=== PATIENT | female | born 2000 | race American Indian/Alaskan Native ===

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

== ENCOUNTER 2022-08-08 16:16 | Emergency (ER) | payer MEDICAID ==
[2022-08-08] MEDS ORDERED: SODIUM CHLORIDE 0.9% 1000 ML IV SOLN IV ONE (17:14)
[2022-08-08] MEDS ORDERED: ACETAMINOPHEN 500 MG TAB PO ONE (17:15)
[2022-08-08] MEDS ORDERED: ONDANSETRON 4 MG/2 ML INJ IV ONE (17:28)
[2022-08-08] MEDS ORDERED: KETOROLAC 30 MG/1 ML INJ IV ONE (17:28)
[2022-08-08] MEDS ORDERED: FAMOTIDINE 20 MG/2 ML INJ IV ONE (17:33)
--- NOTE | 2022-08-08 17:33 | Emergency Department Report ---
ED Fever HPI - General Chief Complaint: Fever Stated Complaint: HEADACHE, NAUSEA ABD PAIN Time Seen by Provider: 08/08/22 17:13 Source: patient Exam Limitations: no limitations - History of Present Illness Initial Comments: 21-year-old female no past medical surgical history presents to the hospital complaining of fever, nausea, vomiting, and abdominal pain radiating to the back x3 days. Patient has not had any food in 3 days but attempting to drink fluids but continues to have persistent vomiting, she complains of intermittent cramping along abdominal pain radiating to the back. Pain is 10/10 at times and worse with palpation. Patient did endorse constipation but took a laxative and is currently having diarrhea. She denies dysuria, vaginal discharge, cough, chest pain, or shortness of breath. She is unvaccinated for COVID and has not self tested since illness started. Patient has been treating herself with [id number] medications without improvement ED Review of Systems ROS: Stated complaint: HEADACHE, NAUSEA ABD PAIN Other details as noted in HPI Comment: All other systems reviewed and negative ED Past Medical Hx - Social History Smoking Status: Never Smoker Substance Use Type: None - Medications Home Medications: Home Medications Medication Instructions Recorded Confirmed Last Taken Type Azithromycin [Zithromax Z-LASHONDA] 250 mg PO DAILY #6 tablet 02/22/18 Unknown Rx Benzonatate [Tessalon Perle] 100 mg PO Q8H PRN #10 capsule 02/22/18 Unknown Rx Ibuprofen [Motrin] 600 mg PO Q8H PRN #30 tablet 02/22/18 Unknown Rx Acetaminophen [Acetaminophen 8 650 mg PO TID PRN #20 tab 08/08/22 Unknown Rx Hour] Ibuprofen [Motrin] 800 mg PO Q8HR PRN #20 tablet 08/08/22 Unknown Rx Promethazine [Phenergan] 25 mg PO Q8HR PRN #20 tab 08/08/22 Unknown Rx levoFLOXacin [Levaquin] 750 mg PO QDAY #7 tablet 08/08/22 Unknown Rx metroNIDAZOLE [Flagyl] 500 mg PO Q8HR #21 tablet 08/08/22 Unknown Rx ED Physical Exam - General Limitations: No Limitations - Other Other exam information: General: No acute distress Head: Atraumatic Eyes: normal appearance Neck: Normal appearance, no midline tenderness Chest: Clear to auscultation bilaterally CV: Tachycardia regular rhythm Abdomen: Soft, normal bowel sounds, suprapubic and lower abdominal tenderness, nondistended, no rebound or guarding Back: Normal inspection Extremity: Normal inspection, full range of motion Neuro: Alert O x 3, no facial asymmetry, speech clear, no gross motor sensory deficit Psych: Appropriate behavior Skin: No rash ED Course Vital Signs 08/08/22 08/08/22 08/08/22 16:32 18:46 19:00 Temperature 103.1 F H Pulse Rate 145 H 105 H 103 H Respiratory 18 16 20 Rate Blood Pressure 142/78 127/64 Blood Pressure 129/74 [Left] O2 Sat by Pulse 100 100 98 Oximetry 08/08/22 08/08/22 08/08/22 19:24 19:31 19:45 Temperature Pulse Rate 107 H 102 H 100 H Respiratory 16 20 Rate Blood Pressure 128/74 142/78 Blood Pressure [Left] O2 Sat by Pulse 99 99 99 Oximetry 08/08/22 08/08/22 08/08/22 19:50 20:00 20:15 Temperature 100.1 F H Pulse Rate 107 H 95 H 87 Respiratory 14 17 17 Rate Blood Pressure 128/77 137/76 Blood Pressure 128/77 [Left] O2 Sat by Pulse 97 100 99 Oximetry 08/08/22 08/08/22 08/08/22 20:31 20:45 21:00 Temperature Pulse Rate 79 76 82 Respiratory 27 H 22 19 Rate Blood Pressure 128/85 144/95 130/54 Blood Pressure [Left] O2 Sat by Pulse 100 100 100 Oximetry 08/08/22 08/08/22 08/08/22 21:16 23:03 23:15 Temperature Pulse Rate 87 84 Respiratory 13 16 Rate Blood Pressure 144/95 130/54 126/74 Blood Pressure [Left] O2 Sat by Pulse 100 99 99 Oximetry 08/08/22 08/08/22 08/09/22 23:31 23:45 00:01 Temperature Pulse Rate 89 91 H 89 Respiratory 16 26 H 22 Rate Blood Pressure 144/72 123/66 126/65 Blood Pressure [Left] O2 Sat by Pulse 99 99 99 Oximetry 08/09/22 08/09/22 08/09/22 00:15 00:31 00:45 Temperature Pulse Rate 91 H 86 92 H Respiratory 24 16 14 Rate Blood Pressure 120/57 133/81 131/84 Blood Pressure [Left] O2 Sat by Pulse 99 96 99 Oximetry 08/09/22 08/09/22 01:01 01:15 Temperature Pulse Rate 91 H 87 Respiratory 13 12 Rate Blood Pressure 139/81 122/91 Blood Pressure [Left] O2 Sat by Pulse 100 99 Oximetry - Consultations Consultation #1: 08/08/22 23:36 Case was discussed with Dr. Monsalve. Recommends admission, n.p.o., and IV antibiotics. Patient was informed that admission was recommended for reevaluation to rule out appendicitis. Case to be discussed with Dr. Monsalve who recommends Flagyl and Levaquin if patient decides to leave AGAINST MEDICAL ADVICE. ED Medical Decision Making - Lab Data Result diagrams: 08/08/22 17:27 08/08/22 17:27 Lab Results 08/08/22 08/08/22 08/08/22 Range/Units 17:27 17:27 17:27 WBC 17.4 H (4.5-11.0) K/mm3 RBC 4.74 (3.65-5.03) M/mm3 Hgb 12.2 (10.1-14.3) gm/dl Hct 38.6 (30.3-42.9) % MCV 81 (79-97) fl MCH 26 L (28-32) pg MCHC 32 (30-34) % RDW 15.0 (13.2-15.2) % Plt Count 333 (140-440) K/mm3 Lymph % (Auto) 4.2 L (13.4-35.0) % [place] % (Auto) 6.5 (0.0-7.3) % Eos % (Auto) 0.1 (0.0-4.3) % Baso % (Auto) 0.2 (0.0-1.8) % Lymph # (Auto) 0.7 L (1.2-5.4) K/mm3 [place] # (Auto) 1.1 H (0.0-0.8) K/mm3 Eos # (Auto) 0.0 (0.0-0.4) K/mm3 Baso # (Auto) 0.0 (0.0-0.1) K/mm3 Seg Neutrophils % 89.0 H (40.0-70.0) % Seg Neutrophils # 15.5 H (1.8-7.7) K/mm3 Sodium 133 L (137-145) mmol/L Potassium 3.5 L (3.6-5.0) mmol/L Chloride 94.6 L (98-107) mmol/L Carbon Dioxide 22 (22-30) mmol/L Anion Gap 20 mmol/L BUN 6 L (7-17) mg/dL Creatinine 0.9 (0.6-1.2) mg/dL Estimated GFR > 60 ml/min BUN/Creatinine Ratio 7 % Glucose 110 H (65-100) mg/dL Lactic Acid 2.40 H* (0.7-2.0) mmol/L Calcium 9.0 (8.4-10.2) mg/dL Magnesium (1.7-2.3) mg/dL Total Bilirubin 0.30 (0.1-1.2) mg/dL AST 17 (5-40) units/L ALT 14 (7-56) units/L Alkaline Phosphatase 97 (35-129) units/L Total Protein 7.9 (6.3-8.2) g/dL Albumin 4.5 (3.9-5) g/dL Albumin/Globulin Ratio 1.3 % Lipase (13-60) units/L TSH (0.270-4.200) mlU/mL Free T4 (0.76-1.46) ng/dL HCG, Qual (Negative) Urine Color (Yellow) Urine Turbidity (Clear) Specific Suring (Man) (1.003-1.030) Ur Protein (Man) (Negative) mg/dL Ur Ketones (Man) (Negative) Ur Nitrite (Man) (Negative) Ur Reducing Substances Urine Bilirubin (Man) (Negative) Urine Ictotest Leukocyte Esterase (Man) (Negative) Urine WBC (Auto) (0.0-6.0) /HPF Urine RBC (Auto) (0.0-6.0) /HPF U Epithel Cells (Auto) (0-13.0) /HPF Urine RBC (Manual) (Negative) 08/08/22 08/08/22 08/08/22 Range/Units 17:27 17:27 17:27 WBC (4.5-11.0) K/mm3 RBC (3.65-5.03) M/mm3 Hgb (10.1-14.3) gm/dl Hct (30.3-42.9) % MCV (79-97) fl MCH (28-32) pg MCHC (30-34) % RDW (13.2-15.2) % Plt Count (140-440) K/mm3 Lymph % (Auto) (13.4-35.0) % [place] % (Auto) (0.0-7.3) % Eos % (Auto) (0.0-4.3) % Baso % (Auto) (0.0-1.8) % Lymph # (Auto) (1.2-5.4) K/mm3 [place] # (Auto) (0.0-0.8) K/mm3 Eos # (Auto) (0.0-0.4) K/mm3 Baso # (Auto) (0.0-0.1) K/mm3 Seg Neutrophils % (40.0-70.0) % Seg Neutrophils # (1.8-7.7) K/mm3 Sodium (137-145) mmol/L Potassium (3.6-5.0) mmol/L Chloride (98-107) mmol/L Carbon Dioxide (22-30) mmol/L Anion Gap mmol/L BUN (7-17) mg/dL Creatinine (0.6-1.2) mg/dL Estimated GFR ml/min BUN/Creatinine Ratio % Glucose (65-100) mg/dL Lactic Acid (0.7-2.0) mmol/L Calcium (8.4-10.2) mg/dL Magnesium (1.7-2.3) mg/dL Total Bilirubin (0.1-1.2) mg/dL AST (5-40) units/L ALT (7-56) units/L Alkaline Phosphatase (35-129) units/L Total Protein (6.3-8.2) g/dL Albumin (3.9-5) g/dL Albumin/Globulin Ratio % Lipase 11 L (13-60) units/L TSH 0.510 (0.270-4.200) mlU/mL Free T4 1.32 (0.76-1.46) ng/dL HCG, Qual Negative (Negative) Urine Color (Yellow) Urine Turbidity (Clear) Specific Suring (Man) (1.003-1.030) Ur Protein (Man) (Negative) mg/dL Ur Ketones (Man) (Negative) Ur Nitrite (Man) (Negative) Ur Reducing Substances Urine Bilirubin (Man) (Negative) Urine Ictotest Leukocyte Esterase (Man) (Negative) Urine WBC (Auto) (0.0-6.0) /HPF Urine RBC (Auto) (0.0-6.0) /HPF U Epithel Cells (Auto) (0-13.0) /HPF Urine RBC (Manual) (Negative) 08/08/22 08/08/22 08/08/22 Range/Units 19:08 19:54 19:54 WBC (4.5-11.0) K/mm3 RBC (3.65-5.03) M/mm3 Hgb (10.1-14.3) gm/dl Hct (30.3-42.9) % MCV (79-97) fl MCH (28-32) pg MCHC (30-34) % RDW (13.2-15.2) % Plt Count (140-440) K/mm3 Lymph % (Auto) (13.4-35.0) % [place] % (Auto) (0.0-7.3) % Eos % (Auto) (0.0-4.3) % Baso % (Auto) (0.0-1.8) % Lymph # (Auto) (1.2-5.4) K/mm3 [place] # (Auto) (0.0-0.8) K/mm3 Eos # (Auto) (0.0-0.4) K/mm3 Baso # (Auto) (0.0-0.1) K/mm3 Seg Neutrophils % (40.0-70.0) % Seg Neutrophils # (1.8-7.7) K/mm3 Sodium (137-145) mmol/L Potassium (3.6-5.0) mmol/L Chloride (98-107) mmol/L Carbon Dioxide (22-30) mmol/L Anion Gap mmol/L BUN (7-17) mg/dL Creatinine (0.6-1.2) mg/dL Estimated GFR ml/min BUN/Creatinine Ratio % Glucose (65-100) mg/dL Lactic Acid 1.70 (0.7-2.0) mmol/L Calcium (8.4-10.2) mg/dL Magnesium 1.40 L (1.7-2.3) mg/dL Total Bilirubin (0.1-1.2) mg/dL AST (5-40) units/L ALT (7-56) units/L Alkaline Phosphatase (35-129) units/L Total Protein (6.3-8.2) g/dL Albumin (3.9-5) g/dL Albumin/Globulin Ratio % Lipase (13-60) units/L TSH (0.270-4.200) mlU/mL Free T4 (0.76-1.46) ng/dL HCG, Qual (Negative) Urine Color Yellow (Yellow) Urine Turbidity Clear (Clear) Specific [place] (Man) 1.005 (1.003-1.030) Ur Protein (Man) 1+ (Negative) mg/dL Ur Ketones (Man) 1+ (Negative) Ur Nitrite (Man) Negative (Negative) Ur Reducing Substances Not Reportable Urine Bilirubin (Man) Negative (Negative) Urine Ictotest Not Reportable Leukocyte Esterase (Man) Negative (Negative) Urine WBC (Auto) 5.0 (0.0-6.0) /HPF Urine RBC (Auto) 3.0 (0.0-6.0) /HPF U Epithel Cells (Auto) 4.0 (0-13.0) /HPF Urine RBC (Manual) Negative (Negative) 08/08/22 Range/Units 20:19 WBC (4.5-11.0) K/mm3 RBC (3.65-5.03) M/mm3 Hgb (10.1-14.3) gm/dl Hct (30.3-42.9) % MCV (79-97) fl MCH (28-32) pg MCHC (30-34) % RDW (13.2-15.2) % Plt Count (140-440) K/mm3 Lymph % (Auto) (13.4-35.0) % [place] % (Auto) (0.0-7.3) % Eos % (Auto) (0.0-4.3) % Baso % (Auto) (0.0-1.8) % Lymph # (Auto) (1.2-5.4) K/mm3 [place] # (Auto) (0.0-0.8) K/mm3 Eos # (Auto) (0.0-0.4) K/mm3 Baso # (Auto) (0.0-0.1) K/mm3 Seg Neutrophils % (40.0-70.0) % Seg Neutrophils # (1.8-7.7) K/mm3 Sodium (137-145) mmol/L Potassium (3.6-5.0) mmol/L Chloride (98-107) mmol/L Carbon Dioxide (22-30) mmol/L Anion Gap mmol/L BUN (7-17) mg/dL Creatinine (0.6-1.2) mg/dL Estimated GFR ml/min BUN/Creatinine Ratio % Glucose (65-100) mg/dL Lactic Acid 1.70 (0.7-2.0) mmol/L Calcium (8.4-10.2) mg/dL Magnesium (1.7-2.3) mg/dL Total Bilirubin (0.1-1.2) mg/dL AST (5-40) units/L ALT (7-56) units/L Alkaline Phosphatase (35-129) units/L Total Protein (6.3-8.2) g/dL Albumin (3.9-5) g/dL Albumin/Globulin Ratio % Lipase (13-60) units/L TSH (0.270-4.200) mlU/mL Free T4 (0.76-1.46) ng/dL HCG, Qual (Negative) Urine Color (Yellow) Urine Turbidity (Clear) Specific [place] (Man) (1.003-1.030) Ur Protein (Man) (Negative) mg/dL Ur Ketones (Man) (Negative) Ur Nitrite (Man) (Negative) Ur Reducing Substances Urine Bilirubin (Man) (Negative) Urine Ictotest Leukocyte Esterase (Man) (Negative) Urine WBC (Auto) (0.0-6.0) /HPF Urine RBC (Auto) (0.0-6.0) /HPF U Epithel Cells (Auto) (0-13.0) /HPF Urine RBC (Manual) (Negative) - Radiology Data Radiology results: report reviewed CT ABDOMEN AND PELVIS WITH CONTRAST HISTORY: lower pain, n,v fever. COMPARISON: None. TECHNIQUE: CT images of the abdomen and pelvis were obtained following administration of intravenous contrast. All CT scans at this location are performed using CT dose reduction for ALARA by means of automated exposure control. CONTRAST: 100 ml of intravenous contrast administered. FINDINGS: Lungs/bones: Lung bases are clear Abdomen/pelvis: There is fatty infiltration of the liver. Spleen, adrenal glands, pancreas, gallbladder and upper GI tract appear normal. Bilateral kidneys appear normal. No definite renal stones are seen. The appendix is dilated measuring 7 mm. There is some gas within the tip. There is inflammatory change surrounding the distal sigmoid colon and rectum with rectal wall thickening urinary bladder appears normal. No acute bone findings IMPRESSION: 1. Diffuse inflammation and thickening of the distal sigmoid colon and rectum with surrounding inflammatory change. Findings could represent inflammatory change, infectious etiology. There is also mild inflammation surrounding the adjacent uterus. Pelvic ultrasound and clinical correlation. Follow-up recommended 2. The appendix is slightly dilated measuring 7 mm. There is some gas is appears within the tip. There may be some minimal enhancement of the proximal appendix wall with fluid- filled. No surrounding inflammatory change however clinical correlation to exclude appendicitis. Correlation with laboratory data.. - Medical Decision Making 21-year-old female presents to the hospital lower abdominal pain, nausea, vomiting, diarrhea, and fever. Patient feeling much better with ED treatment involving 30 mL/kg bolus of normal saline, morphine, Zofran, and supplementation of potassium and magnesium. CT findings noted with possibility of appendicitis not ruled out based on scan. General surgeon Dr. Monsalve evaluated CT and thinks it is unlikely appendicitis however, does continue to recommend admission, IV antibiotics, and reexamination. I explained to patient that appendicitis not 100% ruled out. I explained to both patient and her mother via speaker phone the untreated appendicitis can lead to rupture, sepsis/severe blood infection, and . Both voiced understanding. Patient still wants to sign out AGAINST MEDICAL ADVICE. She will be provided antibiotics Critical Care Time: No Critical care attestation.: If time is entered above; I have spent that time in minutes in the direct care of this critically ill patient, excluding procedure time. ED Disposition Clinical Impression: Colitis, Acute appendicitis Disposition: 07 LEFT AGAINST MEDICAL ADVICE Is pt being admited?: No Does the pt Need Aspirin: No Condition: Stable Instructions: Colitis, Appendicitis, Adult, [id number] Additional Instructions: You have been provided discharge instructions for colitis (colon inflammation) and (appendicitis) which cannot be ruled out at this time. You have refused admission to the hospital for IV antibiotics and surgical evaluation. Untreated appendicitis can lead to rupture, severe blood infection, and . Take the medication as prescribed. Follow-up with your doctor or doctor/clinic provided. Return if symptoms worsen as indicated by your discharge instructions. Prescriptions: Acetaminophen [Acetaminophen 8 Hour] 650 mg PO TID PRN #20 tab PRN Reason: Pain , Severe (7-10) metroNIDAZOLE [Flagyl] 500 mg PO Q8HR #21 tablet levoFLOXacin [Levaquin] 750 mg PO QDAY #7 tablet Ibuprofen [Motrin] 800 mg PO Q8HR PRN #20 tablet PRN Reason: Pain , Severe (7-10) Promethazine [Phenergan] 25 mg PO Q8HR PRN #20 tab PRN Reason: Nausea Referrals: ZAC BARAKAT MD [Primary Care Provider] - 3-5 Days DAVID MONSALVE DO [Staff Physician] - 3-5 Days Forms: AMA Form
[2022-08-08 18:03] LABS: Basophils % (Auto) 0.2 % (0.0-1.8); Eosinophils % (Auto) 0.1 % (0.0-4.3); Hematocrit 38.6 % (30.3-42.9); Hemoglobin 12.2 gm/dl (10.1-14.3); Lymphocytes # (Auto) 0.7 K/mm3 (1.2-5.4); Lymphocytes % (Auto) 4.2 % (13.4-35.0); Mean Corpuscular HGB Conc 32 % (30-34); Mean Corpuscular Volume 81 fl (79-97); Monocytes # (Auto) 1.1 K/mm3 (0.0-0.8); Monocytes % (Auto) 6.5 % (0.0-7.3); Platelet Count 333 K/mm3 (140-440); Red Blood Count 4.74 M/mm3 (3.65-5.03)
[2022-08-08 18:30] LABS: Alanine Aminotransferase 14 units/L (7-56); Albumin 4.5 g/dL (3.9-5); BUN/Creatinine Ratio 7; Blood Urea Nitrogen 6 mg/dL (7-17); Hemolysis Index 12
[2022-08-08 18:41] LABS: Free T4 (Free Thyroxine) 1.32 ng/dL (0.76-1.46)
--- NOTE | 2022-08-08 19:46 | Cat Scan Report ---
CT ABDOMEN AND PELVIS WITH CONTRAST HISTORY: lower pain, n,v fever. COMPARISON: None. TECHNIQUE: CT images of the abdomen and pelvis were obtained following administration of intravenous contrast. All CT scans at this location are performed using CT dose reduction for ALARA by means of automated exposure control. CONTRAST: 100 ml of intravenous contrast administered. FINDINGS: Lungs/bones: Lung bases are clear Abdomen/pelvis: There is fatty infiltration of the liver. Spleen, adrenal glands, pancreas, gallblad kelsey and upper GI tract appear normal. Bilateral kidneys appear normal. No definite renal stones are s een. The appendix is dilated measuring 7 mm. There is some gas within the tip. There is inflammatory change surrounding the distal sigmoid colon and rectum with rectal wall thicken ing urinary bladder appears normal. No acute bone findings IMPRESSION: 1. Diffuse inflammation and thickening of the distal sigmoid colon and rectum with surrounding inflam matory change. Findings could represent inflammatory change, infectious etiology. There is also mild inflammation surrounding the adjacent uterus. Pelvic ultrasound and clinical correlation. Follow-up r ecommended 2. The appendix is slightly dilated measuring 7 mm. There is some gas is appears within the tip. Ther e may be some minimal enhancement of the proximal appendix wall with fluid-filled. No surrounding inf lammatory change however clinical correlation to exclude appendicitis. Correlation with laboratory da ta.. Signer Name: Ashvin Cuevas MD Signed: 08/08/2022 7:42 PM Workstation Name: [id number]
[2022-08-08 20:19] LABS: Color,Urine Yellow (Yellow)
[2022-08-08] MEDS ORDERED: MAGNESIUM SULFATE 2 GM/50 ML BAG IV ONE (21:05)
[2022-08-08] MEDS ORDERED: POTASSIUM CHLORIDE ER 20 MEQ TAB PO ONE (22:07)
[2022-08-08] MEDS ORDERED: PIPERACIL/TAZOBACTA 4.5/NS 100 4.5 GM/100 ML VIAL IV ONE (22:58)
[2022-08-09 01:39] VITALS: BP 122/91
--- NOTE | 2022-08-12 09:40 | Electrocardiograph Report ---
[facility] Test Date: 2022-08-08 Test Time: 16:39:32 Pat Name: FRITZ MILLAN Department: Room: Gender: F Processing Lead: ER : 2000 Requested By: ROMA NARVAEZ Order Number: [id number] Reading MD: Jerad Heck Measurements Intervals [place] Rate: 129 P: 59 LA: 95 QRS: 32 QRSD: 84 T: 5 QT: 293 QTc: 428 Interpretive Statements Sinus tachycardia Probable left atrial enlargement Nonspecific T abnormalities, anterior leads No previous ECG available for comparison Electronically Signed On 08-12-2022 9:39:37 EDT by Jerad Heck
== END 2022-08-09 01:35 | disposition left against medical advice (07) ==
LOC: ED 16:16
DX: K35.80 Unspecified acute appendicitis (principal); K52.9 Noninfective gastroenteritis and colitis, unspecified; Z79.899 Other long term (current) drug therapy
CPT/HCPCS: 36415; 74177; 80053; 81001; 82140; 83690; 83735; 84439; 84443; 84703; 85025; 87040; 87210; 87591; 93005; 96361; 96365; 96366; 96368; 96375; 99284; J1885; J2405; J2543; J3475; J3490; J7030; Q9967